=== PATIENT | female | born 1970 | race Caucasian/White ===

== ENCOUNTER → 2024-04-21 | Outpatient (CLI) | payer OTHER | LOC: CSHSLEEP 09:52 | PROVIDERS: ATTEND Family Medicine | DX: G47.33 Obstructive sleep apnea (adult) (pediatric) (principal); R53.83 Other fatigue; F31.9 Bipolar disorder, unspecified; R06.83 Snoring; R35.1 Nocturia | CPT/HCPCS: 95800 ==

== ENCOUNTER 2024-05-10 10:18 | Outpatient (CLI) | payer OTHER | END 2024-05-10 10:19 | disposition home or self-care (01) | LOC: CSHSLEEP 10:18 | PROVIDERS: ATTEND Family Medicine | DX: G47.33 Obstructive sleep apnea (adult) (pediatric) (principal); R53.83 Other fatigue; F31.9 Bipolar disorder, unspecified; R06.83 Snoring; R35.1 Nocturia | CPT/HCPCS: 95811 ==